=== PATIENT | male | born 2000 ===

== ENCOUNTER 2021-03-16 09:32 | Day surgery (SDC) ==
[2021-03-16] MEDS ORDERED: Ondansetron ODT 4 MG TAB ONE (09:37)
[2021-03-16] MEDS ORDERED: Ondansetron PF 4 MG/2 ML Vial ONE ×2 (10:19→12:39)
[2021-03-16] MEDS ORDERED: Morphine 4 MG/ML VIAL ONE ×2 (10:19→11:42)
[2021-03-16 10:37] LABS: #Eosinphils 0.1 thou/uL (0.0-0.7); #Lymphocytes 2.9 thou/uL (1.20-3.40); #Monocytes 0.8 thou/uL (0.11-0.59); #Neutrophils 8.6 thou/uL (1.40-6.50); %Basophils 0.4 % (0.0-1.0); %Eosinophils 0.8 % (0.0-10.0); %Lymphocytes 23.1 % (28.0-48.0); %Monocytes 6.5 % (0.0-4.0); %Neutrophils 69.2 % (31.0-61.0); Hemoglobin 14.8 g/dL (14.0-18.0); Mean Corpuscular HGB CONC 33.7 g/dL (32.0-36.0); Mean Corpuscular Hemoglobin 31.6 pg (25.0-35.0); Mean Corpuscular Volume 93.8 fL (78.0-98.0); Mean Platelet Volume 8.6 fL (7.4-10.4); Platelet Count 157 thou/uL (130-400); RBC Distribution Width 13.1 % (11.5-14.5); Red Blood Cell (RBC) Count 4.67 mill/uL (4.00-5.20); White Blood Cell (WBC) Count 12.4 thou/uL (4.8-10.8)
[2021-03-16 10:57] LABS: ALT (SGPT) 24 U/L (8-55); AST (SGOT) 24 U/L (10-45); Albumin 4.3 g/dL (3.5-5.0); Alkaline Phosphatase 91 U/L (50-130); Anion Gap 15 mmol/L (10-20); BUN (Urea Nitrogen) 12 mg/dL (8.4-21.0); Bilirubin, Total 0.2 mg/dL (0.2-1.2); Calc. Creatinine Clearance 0 mL/min (70-130); Calcium 9.4 mg/dL (7.8-10.44); Carbon Dioxide 22 mmol/L (22-29); Chloride 105 mmol/L (98-107); Globulin 2.9 g/dL (2.4-3.5); Glucose 124 mg/dL (70-105); Potassium 3.8 mmol/L (3.5-5.1); Protein, Total 7.2 g/dL (6.0-8.3); Sodium 138 mmol/L (136-145)
[2021-03-16] MEDS ORDERED: Fentanyl 100 MCG/2 ML VIAL ONE ×2 (11:53→14:05)
[2021-03-16] MEDS ORDERED: Midazolam HCl 2 mg/2 ml Vial ONE (11:53)
[2021-03-16] MEDS ORDERED: Bicillin LA 2.4 MILL.UNITS/4 ML SYRINGE ONE (12:02)
[2021-03-16 12:38] LABS: SARS-CoV-2 NAA Rapid Test Not Detected (NotDetected)
[2021-03-16] MEDS ORDERED: Ketorolac Tromethamine 30 MG/ML VIAL ONE (12:39)
[2021-03-16] MEDS ORDERED: Lidocaine 1% PF 5 ML VIAL ONE (12:39)
[2021-03-16] MEDS ORDERED: Glycopyrrolate 0.2 MG/ML 5 ML SYRINGE ONE (12:39)
[2021-03-16] MEDS ORDERED: Rocuronium Bromide 10 MG/ML (10ML VIAL) ONE (12:39)
[2021-03-16] MEDS ORDERED: PROPOFOL 200 MG/20 ML VIAL ONE (12:39)
[2021-03-16] MEDS ORDERED: Dexamethasone 20 MG/5 ML VIAL ONE (12:39)
[2021-03-16 13:19] LABS: Syphilis Antibody Index 3.61 S/CO (<1.00 Non-Reactive)
[2021-03-16] MEDS ORDERED: Ondansetron HCl/PF 4 MG/2 ML Vial IVP PRN (13:54)
[2021-03-16] MEDS ORDERED: Meperidine HCl/PF 25 MG/ML VIAL SLOW IVP PRN (13:54)
[2021-03-16] MEDS ORDERED: Promethazine HCl 25 MG/ML VIAL IM PRN (13:54)
[2021-03-16] MEDS ORDERED: Promethazine HCl 25 MG/ML VIAL IVPB PRN (13:54)
[2021-03-16 14:07] LABS: Syphilis Antibody INDETERMINATE (Nonreactive)
[2021-03-16 15:09] LABS: Lactic Acid 2.5 mmol/L (0.5-2.2)
[2021-03-16] MEDS ORDERED: HYDROcodone/Acetaminophen 5/325 mg Tablet ONE (15:19)
[2021-03-16] MEDS ORDERED: Morphine 2 MG/ML VIAL ONE (15:31)
[2021-03-16] MEDS ORDERED: Promethazine HCl 25 MG/ML VIAL ONE (16:20)
== END 2021-03-16 17:33 | disposition home or self-care (01) ==
LOC: ERS 09:32 → EDBD 09:32 → SDC 12:40
PROVIDERS: ATTEND Urology
PROC: 0VN90ZZ Release Right Testis, Open Approach (ICD-10-PCS; principal; 2021-03-16)
DX: N44.00 Torsion of testis, unspecified (principal); A51.49 Other secondary syphilitic conditions; F17.210 Nicotine dependence, cigarettes, uncomplicated; F12.10 Cannabis abuse, uncomplicated; Z86.19 Personal history of other infectious and parasitic diseases; Z20.822 Contact with and (suspected) exposure to COVID-19
CPT/HCPCS: 36415; 76870; 80053; 83605; 85025; 86593; 86780; 87040; 87529; 93976; J0561; J1100; J1885; J2250; J2270; J2405; J2550; J2704; J3010; Q0162; U0002; U0005